=== PATIENT | female | born 1945 | race Caucasian/White ===

== ENCOUNTER 2025-01-15 17:28 | Emergency (ER) | payer OTHER, SELFPAY ==
[2025-01-15] VITALS (12 sets, daily range): BP systolic 142–189; BP diastolic 63–91; BMI 44.5
[2025-01-15 17:53] LABS: Hematocrit 38.2 % (37.0-47.0); Hemoglobin 12.6 g/dL (12.0-16.0); Mean Corp Hgb Conc. 33.0 g/dL (33.0-37.0); Mean Corpuscular Volume 86.8 fL (81.0-99.0); Nucleated Red Blood Cells % 0 %; Platelet Count 219 10^3/uL (130-400); Red Cell Dist. Width 14.0 % (11.5-14.5)
[2025-01-15 18:12] LABS: ALT (SGPT) 22 U/L (0-35); AST (SGOT) 22 U/L (14-36); Albumin 4.0 g/dl (3.5-5.0); Alkaline Phosphatase 87 U/L (38-126); Blood Urea Nitrogen 32 mg/dl (7-17); Calcium 9.5 mg/dl (8.4-10.2); Carbon Dioxide 26 mmol/L (22-30); Chloride 101 mmol/L (98-107); Glucose 257 mg/dl (70-99); Potassium 4.1 mmol/L (3.5-5.1); Sodium 135 mmol/L (135-145); Total Protein 6.6 g/dl (6.3-8.2); eGFR 50.48
[2025-01-15 18:23] LABS: Troponin I < 0.012 ng/ml
--- NOTE | 2025-01-15 21:14 | ED.GENMED ---
History of Present Illness
<Felicity Dior MD, Resident - Last Filed: 01/15/25 23:48>
General
Chief Complaint: Chest Pain
Source: patient and family
Time Seen by Provider: 01/15/25 20:13
History of Present Illness
History of Present Illness:
Mrs. Lizzy Love is a 79-year-old female with a PMH notable for A-fib, aortic stenosis (s/p TAVR 2020 complicated by third-degree AV block s/p pacemaker), swallowing difficulty on her left side due to stroke, who is presenting with chest discomfort.
She pointed to the chest discomfort occurring symmetrically at the costal margin and radiating to the back. She endorses palpitations.
She has not had a cough recently that is productive of white sputum.
She also reports sudden ice cold sensations in her chest. Her son also found it weird she was sitting outside today in the 8 degree weather with a blanket.
Patient does not feel her symptoms warrant seeking medical care, and her son encouraged her to come to the ED. She reports belching lately. She is not sure if her chest pain associated with meals. Denies history of gallstones, kidney stones,
pancreatitis, or diverticulitis.
Past History
<Felicity Dior MD, Resident - Last Filed: 01/15/25 23:48>
Past History
ED Past Medical History: CVA, HTN, NIDDM, Psychiatric (generalized anxiety disorder), Other (morbid obesity) and Other (glaucoma)
ED Past Surgical History: None
Social History
Tobacco: Non-smoker
Alcohol: None
Drug: None
Personal:
Living: with family
Employment: Retired
Family History
Family History: Other (reviewed and noncontributory)
Phy Exam
<Felicity Dior MD, Resident - Last Filed: 01/15/25 23:48>
Physical Exam
Physical Exam:
General: No apparent distress
Heart: Regular rate and rhythm
Extremities: 2+ pitting edema to the knees bilaterally
Lungs: Clear to auscultation bilaterally
GI: Normal bowel sounds, no tenderness to palpation
Scores
<Felicity Dior MD, Resident - Last Filed: 01/15/25 23:48>
Heart Score for Chest Pain Patients
STEMI patient?: No
History: Slightly or Non-Suspicious
ECG: Nonspecific Repolarization
Age: >/= 65 years
Risk Factors: 1 or 2 Risk Factors
Troponin: </= Normal Limit
Heart Score for Chest Pain Patients: 4
Heart Score Risk: 20.3% MACE over next 6 weeks
Course
<Felicity Dior MD, Resident - Last Filed: 01/15/25 23:48>
Orders/Labs/Results
Orders:
Orders
01/15/25 17:29
Electrocardiogram (*1) Urgent
Reason for Study: Chest Pain
01/15/25 17:30
EKG- Treatment ONCE
01/15/25 17:37
Chest [CR Chest - 2 Views ] Urgent
Comment:
Reason For Exam: SOB/COUGH
01/15/25 17:44
CMP [Comprehensive Metabolic Panel] Urgent
Complete Blood Count/With Diff Urgent
NT-proBNP Urgent
Troponin I Urgent
01/15/25 21:49
Troponin I Urgent
Abnormal Lab Results
01/15/25
17:44
Abs Immat Gran (auto) 0.1 H 10^3/uL
(0-0.05)
Absolute Monos (auto) 0.8 H 10^3/uL
(0.1-0.6)
Immature Gran % 0.6 H %
(0-0.5)
BUN 32 H mg/dl
(7-17)
Creatinine 1.1 H mg/dL
(0.6-1.0)
Glucose 257 H mg/dl
(70-99)
01/15/25 17:44
01/15/25 17:44
Vital Signs
Initial and Last Documented VS:
Initial Vital Signs
Temp Pulse Resp BP Pulse Ox
97.6 F 85 18 182/84 98
01/15/25 17:34 01/15/25 17:34 01/15/25 17:34 01/15/25 17:34 01/15/25 17:34
Last Documented Vital Signs
Temp Pulse Resp BP Pulse Ox
97.6 F 72 16 159/84 95
01/15/25 17:34 01/15/25 23:16 01/15/25 23:16 01/15/25 23:16 01/15/25 23:16
<Konrad Richard, DO - Last Filed: 01/15/25 22:49>
Orders/Labs/Results
Orders:
Orders
01/15/25 17:29
Electrocardiogram (*1) Urgent
Reason for Study: Chest Pain
01/15/25 17:30
EKG- Treatment ONCE
01/15/25 17:37
Chest [CR Chest - 2 Views ] Urgent
Comment:
Reason For Exam: SOB/COUGH
01/15/25 17:44
CMP [Comprehensive Metabolic Panel] Urgent
Complete Blood Count/With Diff Urgent
NT-proBNP Urgent
Troponin I Urgent
01/15/25 21:49
Troponin I Urgent
Abnormal Lab Results
01/15/25
17:44
Abs Immat Gran (auto) 0.1 H 10^3/uL
(0-0.05)
Absolute Monos (auto) 0.8 H 10^3/uL
(0.1-0.6)
Immature Gran % 0.6 H %
(0-0.5)
BUN 32 H mg/dl
(7-17)
Creatinine 1.1 H mg/dL
(0.6-1.0)
Glucose 257 H mg/dl
(70-99)
01/15/25 17:44
01/15/25 17:44
Vital Signs
Initial and Last Documented VS:
Initial Vital Signs
Temp Pulse Resp BP Pulse Ox
97.6 F 85 18 182/84 98
01/15/25 17:34 01/15/25 17:34 01/15/25 17:34 01/15/25 17:34 01/15/25 17:34
Last Documented Vital Signs
Temp Pulse Resp BP Pulse Ox
97.6 F 72 16 159/84 95
01/15/25 17:34 01/15/25 23:16 01/15/25 23:16 01/15/25 23:16 01/15/25 23:16
<Felicity Dior MD, Resident - Last Filed: 01/15/25 23:48>
MDM/Problems Addressed
Differential Diagnosis Includes:
Demand ischemia due to high blood pressure
Heart failure
ACS
GERD
MDM/Problems Addressed:
Troponin I normal x 2, BNP normal
Frequent PVCs on EKG
CMP notable for BUN of 32, creatinine of 1.1, glucose 257
CXR with mild pulmonary edema and mild to moderate cardiomegaly
Chronic conditions affecting care: HTN
Acute Exacerbation and/or Progression of Chronic Illness: HTN
<Felicity Dior MD, Resident - Last Filed: 01/15/25 23:48>
*Pulse Oximetry
SaO2: 96
Oxygen Mode of Delivery: Room air
<Konrad Richard, DO - Last Filed: 01/15/25 22:49>
*Pulse Oximetry
Patient hypoxic: no
*Critical Care Note
Total Time (30-74mins, 75-104mins- exclusive of procedures): Not Applicable
ED Attending Note
<Felicity Dior MD, Resident - Last Filed: 01/15/25 23:48>
-
Portions of this chart may have been created with voice recognition software.� Occasional wrong word or��sound alike� substitutions may have occurred due to the inherent limitations of voice recognition software.
<Konrad Richard DO - Last Filed: 01/15/25 22:49>
ED Attending Note
I performed a history and physical exam of patient and discussed management with resident, I reviewed resident's note and agree with documented findings and plan of care.: Yes
ED Attending Note:
Note:
CHIEF COMPLAINT(S)
Generalized body discomfort, fluctuating blood pressure, and intermittent palpitations with associated cold sensations.
HISTORY OF PRESENT ILLNESS
The patient is an 79-year-old female who presented with complaints of intermittent palpitations accompanied by feelings of being 'ice cold' and of generalized body discomfort. She describes these episodes as occurring approximately once a week or
every other week, with the most recent episode occurring this afternoon. Additionally, she notes fluctuating blood pressure readings, with highs reaching 180 mmHg. A week ago, she experienced pain that encircled her torso, which resolved
spontaneously. She mentions a persistent 'scratchy' sensation across her body, attributing this to her pacemaker. She denies acute chest pain but reports past sensations in the heart area, occurring sporadically. There is a noted temporal
relationship between positional changes and swelling, which began about two weeks ago. The patient has expressed frustration with getting follow-up appointments, particularly with her cut roll machine operator and family doctor. She recently experienced
prolonged hoarseness due to a chronic cough.
ADDITIONAL HISTORY OBTAINED FROM SOURCES OTHER THAN THE PATIENT
The patients daughter contributed to the discussion but did not provide additional specific historical details.
SOCIAL DETERMINANTS AFFECTING HEALTH
The patient mentions challenges in accessing healthcare appointments due to systemic delays in scheduling with her cut roll machine operator and family doctor.
PHYSICAL EXAM
- Nursing notes reviewed and vital signs reviewed.
- Visual inspection indicated irritation and itching related to the pacemaker area.
PROBLEM LIST
Acute Problems:
- Intermittent palpitations with cold sensations
- Positional swelling in the lower extremities
- Generalized body discomfort and itching near the pacemaker
Chronic Problems:
- Hypertension with fluctuating blood pressure
PLAN
- Repeat cardiac enzyme tests to evaluate for any cardiac distress.
- All laboratory and imaging results, including chest x-ray, will be reviewed to ensure no abnormalities are present.
- Referral to a chest pain hotline for accelerated cardiology appointment scheduling, though it may not guarantee an immediate consult with a cut roll machine operator.
DIFFERENTIAL DIAGNOSIS
The Differential Diagnosis includes, in no particular order and is not limited to:
1. Arrhythmia
2. Congestive heart failure exacerbation
3. Hypertensive crisis
4. Pacemaker malfunction
5. Peripheral edema due to heart failure
6. Dermatological reaction related to pacemaker
7. Atypical angina
8. Anxiety or stress-induced symptoms
9. Cold intolerance or hypothyroidism
10. Medication side effects
Disposition:
SUMMARY OF ENCOUNTER
The patient presented with generalized body discomfort, fluctuating blood pressure, intermittent palpitations, and cold sensations. The encounter was managed in conjunction with an internet manager and involved a focused review of her symptoms and history.
The physical examination revealed normal findings in her cardiovascular and respiratory systems.
DISPOSITION
Discharge.
PLAN
The patient will be discharged home with a referral to follow up with a cut roll machine operator. She should continue to monitor her symptoms and follow up as necessary.
MEDICAL DECISION MAKING
- Number and Complexity of Problems Addressed: Chronic conditions affecting care include hypertension, intermittent palpitations, and positional swelling in the lower extremities. The differential diagnosis includes arrhythmia, congestive heart
failure exacerbation, hypertensive crisis, pacemaker malfunction, peripheral edema due to heart failure, dermatological reaction related to pacemaker, atypical angina, anxiety or stress-induced symptoms, cold intolerance or hypothyroidism, and
medication side effects.
CRITICAL CARE TIME
None provided.
DIAGNOSIS
- Intermittent palpitations (ICD-10: R00.2)
- Hypertension, unspecified (ICD-10: I10)
- Pacemaker complication, unspecified (ICD-10: T82.1XXA)
Discharge Plan
Departure
Patient Disposition: Home (Routine Discharge)
Date of Disposition: 01/15/25
Time of Disposition: 22:48
Patient with high blood pressure during this ER visit?: Yes
Discharge Problem:
Chest pain
Instructions: Chest Pain CBC Follow Up, BLOOD PRESSURE
Prescriptions:
No Action
insulin aspart U-100 [Novolog FlexPen U-100 Insulin] 300 UNITS/3 ML insulin pen
5 units SC AC PRN (Reason: SLIDING SCALE COVERAGE)
Patient Comments:
Takes 5-8 units
valsartan 40 MG tablet
80 mg PO DAILY
acetaminophen 325 MG tablet
500 mg PO HS PRN (Reason: pain)
zinc 50 MG tablet
50 mg PO DAILY
duloxetine 30 MG capsule,delayed release(DR/EC)
30 mg PO DAILY
insulin NPH isoph U-100 human [Novolin N NPH U-100 Insulin] 1,000 UNITS/10 ML suspension
25 units SC BID@0800,1700
Patient Comments:
Patient takes 20-30 units depending on blood sugar
furosemide 40 MG tablet
40 mg PO DAILY Qty: 30 0RF
Rx Instructions:
Please take as soon as you get home today (08/14)
vitamin B complex 1 TAB tablet
1 tab PO DAILY
clopidogrel 75 MG tablet
75 mg PO DAILY Qty: 30 2RF
amlodipine 5 MG tablet
5 mg PO DAILY Qty: 30 3RF
carvedilol 6.25 MG tablet
6.25 mg PO BID Qty: 60 3RF
atorvastatin 80 MG tablet
80 mg PO QPM Qty: 30 0RF
aspirin 81 MG tablet,chewable
81 mg PO DAILY Qty: 30 0RF
Referrals:
[facility] [Provider Group]
Shon Kolb MD [Family Provider, Family Practice]
Activity Restrictions/Additional Instructions:
Thank You for choosing [facility].
It was a pleasure meeting you and taking part in your care. We hope for your continued healing and wellness.
Please read discharge instructions in their entirety. However, they are for general education and may not describe your exact diagnosis at discharge. Information on your ER visit and medical conditions were discussed with you along with appropriate
follow up information...
If indicated, please take your medications as instructed and indicated on discharge paperwork.
Please schedule a follow up appointment as directed. Call to schedule an appointment
Please return to the emergency department with ANY change in, persisting, or worsening of symptoms. If any of your symptoms do not improve, or persist, or become more severe within 6-12 hours, please return to the emergency department for further
care.
Please return to the emergency department if you develop a headache, neck pain/stiffness, fever greater than 100.4F, chest pain, shortness of breath, persistent nausea, vomiting, slurred speech, difficulty walking, numbness/tingling, weakness, signs
of infection or any other symptoms that are worrisome to you.
If you have any questions or concerns please do not hesitate to call the Hospital at or E-mail me directly at [email or web address]
Interventions
Interventions:
*Risk Screen - Suicide Last Done: 01/15/25 17:34
*General Assessment Last Done: 01/15/25 20:06
*Neglect/Abuse Screening Last Done: 01/15/25 17:34
*ED- Fall Risk Assessment Last Done: 01/15/25 20:06
*ED COVID-19 Vaccine History Last Done: 01/15/25 23:15
*Nursing Disposition Last Done: 01/15/25 23:16
ED- Cardiac Assessment Last Done: 01/15/25 20:06
Discharge Date and Time
Discharge Date/Time: 01/15/25 23:17
Print Language: NAMIBIAN
[2025-01-15 22:25] LABS: Troponin I 0.014 ng/ml
== END 2025-01-15 23:17 | disposition home or self-care (01) ==
LOC: EMR 17:28
PROVIDERS: Emergency Medicine; EMERGENCY PHYSICIAN Student in an Organized Health Care Education/Training Program; FAMILY PHYSICIAN Family Medicine
DX: R07.89 Other chest pain (principal); R00.2 Palpitations; I48.91 Unspecified atrial fibrillation; R60.0 Localized edema; I35.0 Nonrheumatic aortic (valve) stenosis; I44.2 Atrioventricular block, complete; I69.391 Dysphagia following cerebral infarction; R13.10 Dysphagia, unspecified; E11.9 Type 2 diabetes mellitus without complications; E66.01 Morbid (severe) obesity due to excess calories; J81.1 Chronic pulmonary edema; I11.9 Hypertensive heart disease without heart failure; F41.1 Generalized anxiety disorder; R05.3 Chronic cough; R49.0 Dysphonia; H40.9 Unspecified glaucoma; Z95.2 Presence of prosthetic heart valve; Z95.0 Presence of cardiac pacemaker; Z79.82 Long term (current) use of aspirin; Z88.2 Allergy status to sulfonamides; Z88.8 Allergy status to other drugs, medicaments and biological substances; Z91.041 Radiographic dye allergy status
CPT/HCPCS: 99283; 71046; 80053; 83880; 84484; 85025; 93005

== ENCOUNTER 2025-02-08 10:04 | Emergency (ER) | payer OTHER, SELFPAY ==
[2025-02-08 10:06] VITALS: BP 169/79
[2025-02-08 11:14] VITALS: BMI 41.2
--- NOTE | 2025-02-08 11:30 | ED.GENMED ---
History of Present Illness
General
Chief Complaint: Cough
Source: patient
Exam Limitations: none
Time Seen by Provider: 02/08/25 11:30
Nursing documentation reviewed up to this point in time: agreed with
History of Present Illness
History of Present Illness:
Patient is an 79-year-old female with past medical history of stroke , aortic stenosis with TAVR, 2020 PM, CHF hypertension, neuropathy, diabetes, presents to the ER for evaluation of cough for the past week. Patient has coughing fits and has
difficulty catching her breath. She does have a tickle in her throat. Family doctor called in Mamadou Palomares but did not see her. This has not relieved her symptoms. She denies any fever chills myalgia. No other sick contacts at home. No
chest pain.
She denies any chest pain but has had some left lower back pain. She denies any lower extremity swelling.
Past History
Past History
ED Past Medical History: CVA, HTN, NIDDM, Psychiatric (generalized anxiety disorder), Other (morbid obesity) and Other (glaucoma)
ED Past Surgical History: None
Social History
Tobacco: Non-smoker
Alcohol: None
Drug: None
Personal:
Living: with family
Employment: Retired
Family History
Family History: Other (reviewed and noncontributory)
Phy Exam
General Physical Exam
General Presentation: no apparent distress
General age: appears stated age
General Skin: warm and dry
General Habitus: elderly
General Mental: alert
General Hydration: appears well hydrated
Cardiovascular Exam
Cardiovascular Exam: regular rate/rhythm, no murmur and normal peripheral pulses
Pulmonary Exam
Pulmonary Exam: lungs clear, no respiratory distress and other (+ non prod cough )
Neurological Exam
Neurological Exam: alert and oriented x3
Musculoskeletal Exam
Musculoskeletal Exam: full ROM
Skin Exam
Skin Exam: normal color and warm/dry
Psychiatric Exam
Psychiatric Exam: normal mood/affect
Course
Orders/Labs/Results
Orders:
Orders
02/08/25 11:41
Electrocardiogram (*1) Stat
Reason for Study: Other
Other Reason for Exam: chest pain
Cardiac Monitoring- Treatment ONCE
EKG- Treatment ONCE
IV Insert/Care/Rem.- Treatment PRN
Albuterol Nebs [Ventolin Nebules] 2.5 mg INH R NOW STA
CR Chest - 2 Views Urgent
Comment:
Reason For Exam: cp
02/08/25 11:45
Complete Blood Count/With Diff Urgent
Comprehensive Metabolic Panel Urgent
NT-proBNP Urgent
Troponin I Urgent
Abnormal Lab Results
02/08/25
11:45
WBC 11.7 H 10^3/uL
(4.8-10.8)
MCHC 32.5 L g/dL
(33.0-37.0)
Abs Immat Gran (auto) 0.1 H 10^3/uL
(0-0.05)
Absolute Neuts (auto) 9.2 H 10^3/uL
(1.4-6.5)
Absolute Monos (auto) 0.9 H 10^3/uL
(0.1-0.6)
Immature Gran % 0.8 H %
(0-0.5)
Neutrophils % 78.6 H %
(42.2-75.2)
Lymphocytes % 10.8 L %
(20.5-51.1)
Carbon Dioxide 31 H mmol/L
(22-30)
BUN 24 H mg/dl
(7-17)
Glucose 187 H mg/dl
(70-99)
02/08/25 11:45
02/08/25 11:45
Vital Signs
Initial and Last Documented VS:
Initial Vital Signs
Temp Pulse Resp BP Pulse Ox
98.5 F 79 18 169/79 97
02/08/25 10:06 02/08/25 10:06 02/08/25 10:06 02/08/25 10:06 02/08/25 10:06
Last Documented Vital Signs
Temp Pulse Resp BP Pulse Ox
98.5 F 70 18 155/66 94
02/08/25 10:06 02/08/25 13:00 02/08/25 13:00 02/08/25 11:37 02/08/25 13:30
Supervisory Civil Engineer consulted with Physician
Supervisory Civil Engineer consulted with physician?: Yes
Name of Physician Consulted: elijah
MDM/Problems Addressed
MDM/Problems Addressed:
Patient with cough for the past week shortness of breath with this cough. She presents awake alert no acute distress not hypoxic. No obvious fevers. White count very minimally elevated. No acute findings on chest x-ray. Patient mildly tight
throughout exam but no obvious wheezing chest x-ray negative for pneumonia. Patient received an albuterol nebulizer feeling much better. Symptoms are likely bronchitis. Her BNP however is elevated with no acute pulmonary team on x-ray will give 1
dose of steroids here in the ER along with 1 dose of Lasix and DC on 4 days of steroids. She does have an inhaler at home. I did review with patient and daughter that steroids will increase her blood sugar to closely monitor this.
Chronic conditions affecting care:
Diabetic d/c on steroid discussed close monitoring of sugar in addition, history of CHF
*Radiology
Radiology exam reviewed: radiology read reviewed
*Pulse Oximetry
SaO2: 97
Oxygen Mode of Delivery: Room air
Patient hypoxic: no
*EKG
Heart Rate: 71
Rate: normal
Rhythm: other (Atrial sensed v paced.)
*Critical Care Note
Total Time (30-74mins, 75-104mins- exclusive of procedures): Not Applicable
ED Attending Note
-
Portions of this chart may have been created with voice recognition software.� Occasional wrong word or��sound alike� substitutions may have occurred due to the inherent limitations of voice recognition software.
Discharge Plan
Departure
Patient Disposition: Home (Routine Discharge)
Date of Disposition: 02/08/25
Time of Disposition: 14:06
Patient with high blood pressure during this ER visit?: Yes
Condition: Fair
Covid-19: Not Applicable
Discharge Problem:
Bronchitis
Instructions: Acute Bronchitis, Adult (DC), BLOOD PRESSURE
Prescriptions:
New
prednisone 20 mg tablet
40 mg PO DAILY Qty: 8 0RF
No Action
insulin aspart U-100 [Novolog FlexPen U-100 Insulin] 300 UNITS/3 ML insulin pen
5 units SC AC PRN (Reason: SLIDING SCALE COVERAGE)
Patient Comments:
Takes 5-8 units
valsartan 40 MG tablet
80 mg PO DAILY
acetaminophen 325 MG tablet
500 mg PO HS PRN (Reason: pain)
zinc 50 MG tablet
50 mg PO DAILY
duloxetine 30 MG capsule,delayed release(DR/EC)
30 mg PO DAILY
insulin NPH isoph U-100 human [Novolin N NPH U-100 Insulin] 1,000 UNITS/10 ML suspension
25 units SC BID@0800,1700
Patient Comments:
Patient takes 20-30 units depending on blood sugar
furosemide 40 MG tablet
40 mg PO DAILY Qty: 30 0RF
Rx Instructions:
Please take as soon as you get home today (08/14)
vitamin B complex 1 TAB tablet
1 tab PO DAILY
clopidogrel 75 MG tablet
75 mg PO DAILY Qty: 30 2RF
amlodipine 5 MG tablet
5 mg PO DAILY Qty: 30 3RF
carvedilol 6.25 MG tablet
6.25 mg PO BID Qty: 60 3RF
atorvastatin 80 MG tablet
80 mg PO QPM Qty: 30 0RF
aspirin 81 MG tablet,chewable
81 mg PO DAILY Qty: 30 0RF
Referrals:
Shon Kolb MD [Family Provider, Family Practice]
Activity Restrictions/Additional Instructions:
As discussed symptoms are likely consistent with bronchitis. There is no acute pneumonia on your x-ray. You did improve with albuterol nebulizers. Please use your inhalers as previously recommended. In addition a prescription for steroids was
sent to the pharmacy you are given 1 dose here in the ER. Take prednisone starting tomorrow daily for the next 4 days. Please note that this will increase your blood sugar. Please closely watch what you eat and monitor your blood sugars closely.
In addition you were given 1 dose of IV Lasix here in the ER. Please follow with your family doctor in the next 2 days for reevaluation and return if any worsening of symptoms.
Interventions
Interventions:
*Risk Screen - Suicide Last Done: 02/08/25 10:06
*General Assessment Last Done: 02/08/25 10:06
*Neglect/Abuse Screening Last Done: 02/08/25 10:06
ED- Pulmonary Assessment Last Done: 02/08/25 11:14
Discharge Date and Time
Print Language: MONGOLIAN
[2025-02-08 11:37] VITALS: BP 155/66
[2025-02-08 11:52] LABS: Hematocrit 38.2 % (37.0-47.0); Hemoglobin 12.4 g/dL (12.0-16.0); Mean Corp Hgb Conc. 32.5 g/dL (33.0-37.0); Mean Corpuscular Volume 87.2 fL (81.0-99.0); Nucleated Red Blood Cells % 0 %; Platelet Count 245 10^3/uL (130-400); Red Cell Dist. Width 14.2 % (11.5-14.5)
[2025-02-08] MEDS: VENTOLIN NEBULES 2.5 MG INH (11:52)
[2025-02-08 12:18] LABS: ALT (SGPT) 18 U/L (0-35); AST (SGOT) 18 U/L (14-36); Albumin 3.9 g/dl (3.5-5.0); Alkaline Phosphatase 89 U/L (38-126); Blood Urea Nitrogen 24 mg/dl (7-17); Calcium 9.2 mg/dl (8.4-10.2); Carbon Dioxide 31 mmol/L (22-30); Chloride 99 mmol/L (98-107); Estimated Creatinine Clearance 53 ml/min; Glucose 187 mg/dl (70-99); Potassium 4.3 mmol/L (3.5-5.1); Sodium 136 mmol/L (135-145); Total Protein 6.6 g/dl (6.3-8.2); eGFR 56.60
[2025-02-08 12:29] LABS: Troponin I 0.027 ng/ml
[2025-02-08 13:46] VITALS: BP 151/62
[2025-02-08] MEDS: DECADRON 10 MG IV (14:11)
[2025-02-08] MEDS: LASIX 40 MG IV (14:11)
== END 2025-02-08 14:38 | disposition home or self-care (01) ==
LOC: EMR 10:04
PROVIDERS: Nurse Practitioner; EMERGENCY PHYSICIAN Emergency Medicine; FAMILY PHYSICIAN Family Medicine
DX: J40 Bronchitis, not specified as acute or chronic (principal); I35.0 Nonrheumatic aortic (valve) stenosis; I11.0 Hypertensive heart disease with heart failure; I50.9 Heart failure, unspecified; E11.40 Type 2 diabetes mellitus with diabetic neuropathy, unspecified; E66.01 Morbid (severe) obesity due to excess calories; Z86.73 Personal history of transient ischemic attack (TIA), and cerebral infarction without residual deficits
CPT/HCPCS: 99283; 94640; 96374; 96375; 71046; 80053; 83880; 84484; 85025; 93005